=== PATIENT | female | born 1950 | race Caucasian/White ===

== ENCOUNTER → 2019-12-18 13:49 | Outpatient (BNVA) | payer MEDICARE, OTHER, SELFPAY | PROVIDERS: PCP Internal Medicine; Visit Provider Orthopaedic Surgery | DX: S52.502A Unspecified fracture of the lower end of left radius, initial encounter for closed fracture (principal) | CPT/HCPCS: 99212 ==

== ENCOUNTER 2019-12-23 09:48 | Day surgery (SDC) | payer MEDICARE, OTHER, SELFPAY ==
--- NOTE | 2019-12-22 12:49 | P.CONAN_ITS ---
Documented by User: Arabella Dela Cruz 12/22/19 12:51 HPI - Anesthesia Eval Consult details Narrative: 69yo F for Left Radius Distal Fracture ORIF [facility] Past Medical History Medical History Acute meniscal tear of right knee Distal radius fracture, left Hypertension Primary osteoarthritis of knees, bilateral Surgical History Surgical History H/O gastric bypass History of arthroscopy of left knee History of arthroscopy of right knee Social History Social History Smoking Status: Never smoker Use of substances other than those prescribed or required for medical reasons: No Advance Directives: No Advance Directives Information Provided: Yes Current occupational status: unemployed Current occupation: right handed Meds Allergies Allergy/AdvReac Type Severity Reaction Status Date / Time HARJIT Inhibitors Allergy Unknown Verified 12/19/19 10:41 acetaminophen [From Vicodin] Allergy Unknown Verified 12/19/19 10:41 hydrocodone [From Vicodin] Allergy Unknown Verified 12/19/19 10:41 Home Medications Medication Instructions Recorded Confirmed Type amlodipine 10 mg tablet 10 mg PO DAILY 12/17/19 12/19/19 History lorazepam 1 mg tablet 1 mg PO BEDTIME PRN 12/17/19 12/19/19 History losartan 25 mg tablet 25 mg PO DAILY 12/17/19 12/19/19 History tolterodine 4 mg capsule,extended 4 mg PO Q24H 12/17/19 12/19/19 History release 24 hr buspirone 5 mg tablet 5 mg PO TID 12/18/19 12/19/19 History losartan 25 mg tablet 25 mg PO BID 12/18/19 12/19/19 History Exam Exam Date and Time: December 22, 2019 1249 Assessment and Plan Assessment Anesthesia Assessment: Chart Reviewed Documented by User: Henna Chaparro 12/23/19 10:49 [facility] Past Medical History Medical History Acute meniscal tear of right knee Distal radius fracture, left Hypertension Primary osteoarthritis of knees, bilateral Surgical History Surgical History H/O gastric bypass History of arthroscopy of left knee History of arthroscopy of right knee Social History Social History Smoking Status: Never smoker Use of substances other than those prescribed or required for medical reasons: No Advance Directives: No Advance Directives Information Provided: Yes Current occupational status: unemployed Current occupation: right handed Meds Allergies Allergy/AdvReac Type Severity Reaction Status Date / Time HARJIT Inhibitors Allergy Unknown Verified 12/19/19 10:41 acetaminophen [From Vicodin] Allergy Unknown Verified 12/19/19 10:41 hydrocodone [From Vicodin] Allergy Unknown Verified 12/19/19 10:41 Home Medications Medication Instructions Recorded Confirmed Type amlodipine 10 mg tablet 10 mg PO DAILY 12/17/19 12/19/19 History lorazepam 1 mg tablet 1 mg PO BEDTIME PRN 12/17/19 12/19/19 History losartan 25 mg tablet 25 mg PO DAILY 12/17/19 12/19/19 History tolterodine 4 mg capsule,extended 4 mg PO Q24H 12/17/19 12/19/19 History release 24 hr buspirone 5 mg tablet 5 mg PO TID 12/18/19 12/19/19 History losartan 25 mg tablet 25 mg PO BID 12/18/19 12/19/19 History Exam Airway Mallampati Class: II (Crowns everywhere) TM Dist: >3cm Neck ROM: Full Heart: RRR Lungs: CtA BL Assessment and Plan Assessment Anesthesia Assessment: Anesthesia Plan Discussed and Chart Reviewed Final Anesthetic Review NPO: Yes ASA Class: II Final Preanesthetic Review: Meds/Allgs Chart Reviewed and Consent Obtained/Reviewed Patient Risk: Intermediate Procedure Risk: Intermediate Anesthetic Plan Anesthetic Plan: GA and Regional Block (Left brachial plexus) Disposition: Standard PACU
[2019-12-23] VITALS (10 sets, daily range): BP systolic 144–176; BP diastolic 58–87; PULSE 63–74; RESP 12–18; TEMP 36.4–36.9; O2SAT 95–98
--- NOTE | 2019-12-23 10:28 | MHC.SHP ---
Pre-Procedural Eval Section A The patient is an INPATIENT: No Changes since office visit: Yes Patient answered all questions; No Cold of Flu in the past 2 weeks, No New Medical Problems and No Changes in Medication The History & Physical has been completed within 30 days and I have reviewed it.: Yes Section B Chief Complaint: radius fx Allergies: Allergies Allergy/AdvReac Type Severity Reaction Status Date / Time HARJIT Inhibitors Allergy Unknown Verified 12/19/19 10:41 acetaminophen [From Vicodin] Allergy Unknown Verified 12/19/19 10:41 hydrocodone [From Vicodin] Allergy Unknown Verified 12/19/19 10:41 Plan Patient has been examined and remains a candidate for the planned procedure
[2019-12-23] MEDS: Lactated Ringers 1,000 ML 100 ML IVCONT (10:38)
--- NOTE | 2019-12-23 10:39 | FL_ITS ---
EXAMINATION: XR FLUOROSCOPY WITH IMAGES CLINICAL INFORMATION: Fracture left distal radius COMPARISON: None. TECHNIQUE: Fluoroscopy performed by Dr. Jordon Pierce. Fluoroscopy time: 0.4 minutes DAP: 0.005 mGycm2 Images: 2 FINDINGS: AP and lateral fluoroscopic spot images of the wrist were obtained. These demonstrate volar plate and screw fixation of the distal radius. There is deformity of the distal radius but discrete fracture lines are not well seen. FL/FL guidance in OR IMPRESSION: Intraoperative fluoroscopic spot images as described above.
[2019-12-23] MEDS: ceFAZolin Sodium/Dextrose,Iso 2 GM/50 ML PIGGYBACK IV (10:40)
--- NOTE | 2019-12-23 11:33 | PM.OP ---
Brief Operative Note Date of procedure: 12/23/19 Pre-op diagnosis: right knee OA Post-op diagnosis: same Procedure: right TKA Implants: [employer] triathalon press fit 04/15/09/a Surgeon: Jordon Pierce MD Anesthesia: GETA, regional and local Natural Science Manager: Dorina Cabral Estimated blood loss (mL): 150 Tourniquet time (min): 45 IV fluids (mL): 1,000 Pathology: other Condition: stable Disposition: PACU
--- NOTE | 2019-12-23 12:29 | PM.OP ---
Brief Operative Note Date of procedure: 12/23/19 Pre-op diagnosis: left distal radius fx Post-op diagnosis: same Procedure: ORIF left distal radius Implants: Radha Surgeon: Jordon Pierce MD Anesthesia: GETA, KIRTI and regional Cleaner And Trimmer: Dorina Cabral Estimated blood loss (mL): 0 Tourniquet time (min): 35 IV fluids (mL): 600 Pathology: none sent Condition: stable Disposition: PACU
[2019-12-23] MEDS: oxyCODONE HCl Immed Release 5 MG TABLET PO (13:11)
[2019-12-23] MEDS: fentaNYL citrate/PF 100 MCG/2 ML VIAL 50 MCG IVPUSH ×2 (13:14→13:19)
--- NOTE | 2019-12-23 14:18 | HO.POSTANES ---
Post Anesthesia Evaluation Post Anesthesia Evaluation Vital Signs: Vital Signs Temp Pulse Resp BP Pulse Ox 12/23/19 13:44 97.6 F 68 16 151/58 H 97 12/23/19 13:29 74 16 144/71 H 98 12/23/19 13:24 70 16 98 12/23/19 13:19 68 16 146/69 H 97 12/23/19 13:14 67 16 161/81 H 98 12/23/19 12:59 66 18 168/87 H 95 12/23/19 12:54 63 18 153/81 H 95 12/23/19 12:49 65 18 166/75 H 95 12/23/19 12:44 97.6 F 70 12 176/78 H 98 12/23/19 10:18 98.4 F 73 18 146/86 H 96 Anesthesia: Nerve Block and General LMA Mental Status: Awake Pain Control: Satisfactory Nausea/Vomiting: None Hydration: Adequate Anesthesia-Related Issues: No Anes. Related Issues
--- NOTE | 2020-01-07 08:04 | OP_ITS ---
SURGEON: Jordon Pierce MD INDICATIONS: This is a 69-year-old woman with a displaced left distal radius fracture, consented to undergo ORIF. PREOPERATIVE DIAGNOSIS: Left distal radius fracture. POSTOPERATIVE DIAGNOSIS: Left distal radius fracture. PROCEDURE PERFORMED: Open reduction and internal fixation of left distal radius. ESTIMATED BLOOD LOSS: None. COMPLICATIONS: ANESTHESIA: General and regional. ASSISTANTS: SPECIMENS: FLUIDS: 600. TOURNIQUET TIME: 35 minutes. DESCRIPTION OF PROCEDURE: The patient was brought to the operating room, placed supine on the operative table, and prepped and draped in standard sterile fashion. A time-out was called to identify proper site, proper procedure, and proper surgeon. IV antibiotics per weight was administered. I began by exsanguinating the limb and insufflating the tourniquet to 250 mmHg. I then made a standard midline incision over the FCR and identified the FCR sheath. This was opened up proximally and distally, and the FCR was swept ulnar. And the FPL sheath was incised and opened up distally and proximally. The FPL was swept aside, and the pronator quadratus was dissected both sharply and then bluntly off the distal radius. This was a predominantly extra-articular fracture with some intra-articular extension of the fragments dorsally. I was able to reduce the fracture and elected a 7-hole distal radius locking plate. Standard AO technique was used and a biplanar fluoroscopy to confirm the fracture reduction and plate placement and the screws were intraosseous at all times. Once I was happy with these parameters, I took the wrist through range of motion. There was no crepitus. The DRUJ was stable. All instrumentation was removed and a layered closure was performed with skin glue and Steri-Strips on the skin. A volar well-padded splint was placed, and the patient was awakened from anesthesia and brought to the recovery room in stable condition. There were no known complications. ENGINE MECHANIC: LIZ Lombardo. GRAFT OR IMPLANTS: Radha distal radius locking plate. MD JOSE Estrada/ANAND / [id number]
== END 2019-12-23 14:30 | disposition home or self-care (01) ==
PROVIDERS: PCP Internal Medicine; Visit Provider Orthopaedic Surgery
PROC: (CPT 25608; principal; 2019-12-23 11:50)
DX: S52.552A Other extraarticular fracture of lower end of left radius, initial encounter for closed fracture (principal); S52.572A Other intraarticular fracture of lower end of left radius, initial encounter for closed fracture; W01.0XXA Fall on same level from slipping, tripping and stumbling without subsequent striking against object, initial encounter; Y93.9 Activity, unspecified; Y92.9 Unspecified place or not applicable; Y99.8 Other external cause status; M17.0 Bilateral primary osteoarthritis of knee; I10 Essential (primary) hypertension; Z79.899 Other long term (current) drug therapy; Z88.8 Allergy status to other drugs, medicaments and biological substances; Z98.84 Bariatric surgery status
CPT/HCPCS: 25608; 25607; C1713; J0690; J1100; J2250; J2405; J3010

== ENCOUNTER 2019-12-26 15:41 | Outpatient (REF) | payer MEDICARE, OTHER, SELFPAY | END 2019-12-26 15:42 | disposition home or self-care (01) | LOC: HO.LAB 15:41 | PROVIDERS: Visit Provider Internal Medicine | DX: Z20.828 Contact with and (suspected) exposure to other viral communicable diseases (principal) | CPT/HCPCS: C9803; U0003 ==

== ENCOUNTER → 2020-01-02 10:48 | Outpatient (BNVA) | payer MEDICARE, OTHER, SELFPAY | PROVIDERS: PCP Internal Medicine; Visit Provider Physician Assistant | DX: S52.502D Unspecified fracture of the lower end of left radius, subsequent encounter for closed fracture with routine healing (principal) | CPT/HCPCS: 99212 ==

== ENCOUNTER 2020-01-16 09:28 | Outpatient (REF) | payer MEDICARE, OTHER, SELFPAY ==
--- NOTE | 2020-01-16 09:29 | XR_ITS ---
EXAMINATION: XR WRIST, LEFT CLINICAL INFORMATION: Radiographs dated 12/31/2019 and fluoroscopy dated 12/23/2019. COMPARISON: None TECHNIQUE: PA, lateral, and oblique views of the left wrist. FINDINGS: Bony mineralization is diminished. There is a persistent fracture line seen of the distal left radial metaphysis, in stable alignment. An intact orthopedic fixator plate and fixator screws are seen applied to the distal left radius. There is mild periosteal callus formation. No hardware failure or loosening is seen. There is no soft tissue gas or foreign body. XR/XR wrist LT min 3V IMPRESSION: There is stable alignment status-post ORIF of a distal left radial fracture. A persistent fracture line is seen. There is mild periosteal callus formation. No hardware failure or loosening is seen.
== END 2020-01-16 09:29 | disposition home or self-care (01) ==
LOC: HO.HOSX 09:28
PROVIDERS: Visit Provider Physician Assistant
DX: S52.502D Unspecified fracture of the lower end of left radius, subsequent encounter for closed fracture with routine healing (principal); X58.XXXD Exposure to other specified factors, subsequent encounter
CPT/HCPCS: 73110; 99212

== ENCOUNTER → 2020-02-20 09:04 | Outpatient (BNVA) | payer MEDICARE, OTHER, SELFPAY | PROVIDERS: PCP Internal Medicine; Visit Provider Orthopaedic Surgery | DX: M17.11 Unilateral primary osteoarthritis, right knee (principal); M48.062 Spinal stenosis, lumbar region with neurogenic claudication | CPT/HCPCS: 99212 ==

== ENCOUNTER 2020-02-27 09:16 | Outpatient (REF) | payer MEDICARE, OTHER, SELFPAY ==
--- NOTE | 2020-02-27 09:23 | XR_ITS ---
EXAMINATION: XR WRIST, LEFT CLINICAL INFORMATION: Follow-up fracture left distal radius. COMPARISON: Left wrist 12 TECHNIQUE: PA, lateral, and oblique views of the left wrist. FINDINGS: There is there is a healing fracture distal radius stabilized with volar placed metallic plate and screws in satisfactory alignment. No displacement seen. The soft tissues are normal. XR/XR wrist LT min 3V IMPRESSION: Slowly healing fracture distal left radius with volar placed metallic plate and screws.
== END 2020-02-27 09:17 | disposition home or self-care (01) ==
LOC: HO.XRAY 09:16
PROVIDERS: PCP Internal Medicine; Visit Provider Physician Assistant
DX: S52.502D Unspecified fracture of the lower end of left radius, subsequent encounter for closed fracture with routine healing (principal)
CPT/HCPCS: 73110; 99212

== ENCOUNTER → 2020-03-01 10:52 | Outpatient (BNVA) | payer MEDICARE, OTHER, SELFPAY | PROVIDERS: PCP Internal Medicine; Visit Provider Nurse Practitioner Family | DX: I73.9 Peripheral vascular disease, unspecified (principal); M17.11 Unilateral primary osteoarthritis, right knee | CPT/HCPCS: 99202 ==

== ENCOUNTER → 2020-03-08 12:45 | Outpatient (BNVA) | payer MEDICARE, OTHER, SELFPAY | PROVIDERS: PCP Internal Medicine; Visit Provider Nurse Practitioner Family | DX: M48.062 Spinal stenosis, lumbar region with neurogenic claudication (principal) | CPT/HCPCS: Q3014 ==

== ENCOUNTER 2022-01-16 07:48 | Outpatient (REF) | payer MEDICARE, OTHER, SELFPAY ==
--- NOTE | ~2022-01-16 | XR_ITS ---
EXAMINATION: XR SHOULDER, RIGHT CLINICAL INFORMATION: Pain COMPARISON: None TECHNIQUE: Three views of the right shoulder. FINDINGS: No acute visible fracture or dislocation. Mild to moderate arthritic changes of the glenohumeral, and nuclear joint with joint space narrowing and periarticular osteophyte formation. Joint spaces and alignment are otherwise maintained. Soft tissues are unremarkable. Visualized portions of the right chest are unremarkable. XR/XR shoulder RT min 2V IMPRESSION: 1. No acute visible fracture or dislocation. 2. Mild to moderate arthritic changes of the glenohumeral, and acromioclavicular joint.
== END 2022-01-16 07:49 | disposition home or self-care (01) ==
LOC: HO.HOSX 07:48
PROVIDERS: Visit Provider Orthopaedic Surgery
DX: M19.011 Primary osteoarthritis, right shoulder (principal)
CPT/HCPCS: 20600; 73030; 99212; J1100

== ENCOUNTER 2022-10-20 10:07 | Outpatient (REF) | payer MEDICARE, OTHER, SELFPAY ==
--- NOTE | ~2022-10-20 | XR_ITS ---
EXAMINATION: XR PELVIS CLINICAL INFORMATION: Hip pain. COMPARISON: CTA abdomen and pelvis dated 02/07/2022. TECHNIQUE: AP view of the pelvis. FINDINGS: Bony alignment and mineralization are normal. The acetabular joint spaces are well-maintained. There is a small peripheral osteophyte seen of the lateral margin of the left acetabular roof. The femoral heads are smooth. There is no fracture or dislocation. A small enthesophyte arises from the right ischium. No foreign body is seen. XR/XR pelvis 1-2V IMPRESSION: 1. There is mild degenerative change of the left hip. No unusual degenerative change is seen of the right hip. 2. No fracture or dislocation is seen.
--- NOTE | ~2022-10-20 | XR_ITS ---
EXAMINATION: XR SHOULDER, RIGHT CLINICAL INFORMATION: Pain. COMPARISON: Radiographs dated 01/16/2022. TECHNIQUE: AP external rotation, Grashey, scapular Y, and axillary views of the right shoulder. FINDINGS: Bony alignment and mineralization are normal. The glenohumeral joint is intact and shows very mild osteoarthritic change. The acromioclavicular and coracoclavicular intervals are normal. There is mild osteoarthritic change of the acromioclavicular joint. A distal acromial undersurface osteophyte is seen, and there is cortical irregularity of the greater tuberosity of the proximal right humerus. No fracture or dislocation is seen. There is no focal soft tissue calcification or foreign body. No right pneumothorax is seen. XR/XR shoulder RT min 2V IMPRESSION: 1. There is very mild osteoarthritic change of the right glenohumeral joint, and mild osteoarthritic change is seen of the right acromioclavicular joint. 2. There are findings consistent with right rotator cuff impingement. No connie calcific tendinitis is noted.
== END 2022-10-20 10:08 | disposition home or self-care (01) ==
LOC: HO.HOSX 10:07
PROVIDERS: PCP Internal Medicine; Visit Provider Orthopaedic Surgery
DX: M19.011 Primary osteoarthritis, right shoulder (principal); S70.11XA Contusion of right thigh, initial encounter
CPT/HCPCS: 20600; 72170; 73030; 99212; J1100

== ENCOUNTER 2022-10-20 10:07 | Outpatient (AMB) | payer MEDICARE, OTHER, SELFPAY ==
--- NOTE | 2022-10-20 10:25 | A.OFFVIS_ITS ---
Intake Intake Visit Reasons: OV- Right shoulder OA Intake Note: Ayana is a 72 year old -- hand dominant female who presents today for a follow up of her right shoulder OA. Last injected (AC OA) on 01/16/2022. Patient reports that this injection provided mild relief. Patient reports that she took a fall on September 18, where she landed on the right side. She reports increased pain since this fall in the right shoulder and now she feels pain in the lateral aspect of the right upper thigh area. Allergies NSAIDS (Non-Steroidal Anti-Inflamma Adverse Reaction (Intermediate, Verified 01/16/22 13:44) Unknown Zach Inhibitors Allergy (Unknown, Uncoded 01/16/22 13:44) unknown Vicodin Allergy (Unknown, Uncoded 01/16/22 13:44) unknown HPI OV- Right shoulder OA HPI Details Ayana is a 72 year old woman who returns for her right shoulder Arthropathy. She was last seen, and injected, on 01/16/22 in her AC joint. She complains of pain in her right shoulder with daily activity. She says most of her pain is on the top of her shoulder She reports falling on 09/18/22, landing on her right side and she says this incr eased her right shoulder pain and she began experiencing pain in the right lateral hip/thigh. She denies any groin pain. She says her bruise on her thigh has resolved but she reports a burning sensat ion when she touches her thigh. She has lumbar spinal stenosis and a hx of falls [facility] Medical History Acute meniscal tear of right knee Distal radius fracture, left HTN (hypertension) Hypertension Primary osteoarthritis of knees, bilateral Surgical History H/O gastric bypass History of arthroscopy of left knee History of arthroscopy of right knee History of gastric bypass History of left knee surgery History of right knee surgery History of surgery on left wrist Social History Current occupational status: unemployed Current occupation: rt handed Review of Systems Const All systems reviewed & are unremarkable except as noted in HPI and below Physical Exam Const General: no acute distress, alert and awake Orientation/consciousness: patient oriented x3 HEENT Head: Yes normocephalic and Yes atraumatic Eyes EOM: EOMs intact bilaterally Resp Effort & Inspection: normal respiratory effort and able to speak in complete se ntences Cardio Jugular venous distension: no JVD Skin General skin exam: turgor normal Rashes: no rashes Neuro General: patient oriented x3 Extrem Other: Right Shoulder: TTP over ACJ Pain with cross-body adduction Psych Appearance: grossly normal Affect: normal affect Attitude: cooperative Office Procedures Joint Injection/Drain Joint Injection/Drain Details: Injected 1 mL of Decadron and 1 mL 1% lidocaine and 1 mL of 0.25% Marcaine. Site was prepped using aseptic technique. Patient tolerated the procedure well. Primary Site: other (right AC joint) Approach Used: other (superior) Coding - Small Joint Procedure code (CPT) selection complete Results Reviewed Results Reviewed: 10/20/22 10:50 BUPivacaine MPF 0.25 % [Sensorcaine-MPF 0.25% 10 ML] 10 ml .ROUTE .STK-MED ONE Lidocaine HCl 1 % [Xylocaine 1 %] 2 ml .ROUTE .STK-MED ONE dexAMETHasone sod phosphate [Decadron] 4 mg .ROUTE .STK-MED ONE I personally reviewed relevant radiographs. ACJ arthropathy Assessment & Plan Assessment & Plan (1) Arthropathy of right shoulder: Code(s): M19.011 - Primary osteoarthritis, right shoulder Plan: This is a 72 year old woman with right shoulder arthropathy. She has pain with daily activity, localized primarily over the AC joint, which worsened after a fall on 09/18/22. I discussed her diagnosis and treatment options, including surgery in the future I injected her right AC joint today, which she tolerated well. She can follow up prn. (2) Contusion of right thigh: Code(s): S70.11XA - Contusion of right thigh, initial encounter Plan: From a fall, DOI: 09/18/22. Ecchymosis has resolved but she still has some tenderness. Plan Scribed for Jordon Pierce MD by Yazan Chris, medical education specialist, on 10/20/22 at 10:45 AM, EST. Orders: Orders XR pelvis 1-2V Today M25.559 - Pain in unspecified hip XR shoulder RT min 2V Today M25.519 - Pain in unspecified shoulder Coding Level of Care Code Est Pt Level 4 (06586) Diagnoses Arthropathy of right shoulder M19.011 Contusion of right thigh S70.11XA CPT Codes Coding - 02210 - Small joint: - Small Joint ([id number])
== END 2022-10-20 11:05 | disposition home or self-care (01) ==
PROVIDERS: PCP Internal Medicine; Visit Provider Orthopaedic Surgery
DX: M19.011 Primary osteoarthritis, right shoulder (principal); S70.11XA Contusion of right thigh, initial encounter
CPT/HCPCS: 20600; 99214